=== PATIENT | female | born 1945 | race Caucasian/White ===

== ENCOUNTER 2023-10-30 18:00 | Outpatient (RCR) | payer MEDICARE, OTHER, SELFPAY | END 2023-10-30 23:59 | disposition home or self-care (01) | LOC: RPT 18:00 | PROVIDERS: ATTENDING PHYSICIAN Internal Medicine Endocrinology, Diabetes & Metabolism; FAMILY PHYSICIAN Internal Medicine | DX: M85.88 Other specified disorders of bone density and structure, other site (principal) | CPT/HCPCS: 97112; 97161 ==

== ENCOUNTER 2023-12-04 13:06 | Outpatient (RCR) | payer MEDICARE, OTHER, SELFPAY | END 2023-12-04 23:59 | disposition home or self-care (01) | LOC: RPT 13:06 | PROVIDERS: ATTENDING PHYSICIAN Internal Medicine Endocrinology, Diabetes & Metabolism; FAMILY PHYSICIAN Internal Medicine | DX: M85.88 Other specified disorders of bone density and structure, other site (principal); Z73.6 Limitation of activities due to disability | CPT/HCPCS: 97110; 97112 ==

== ENCOUNTER 2023-12-13 14:09 | Outpatient (RCR) | payer MEDICARE, OTHER, SELFPAY | END 2023-12-14 07:11 | disposition home or self-care (01) | LOC: RPT 14:09 | PROVIDERS: ATTENDING PHYSICIAN Internal Medicine Endocrinology, Diabetes & Metabolism; FAMILY PHYSICIAN Internal Medicine | DX: M85.88 Other specified disorders of bone density and structure, other site (principal); Z73.6 Limitation of activities due to disability | CPT/HCPCS: 97110; 97112 ==

== ENCOUNTER 2024-02-11 12:13 | Emergency (ER) | payer MEDICARE, OTHER, SELFPAY ==
[2024-02-11] VITALS (8 sets, daily range): BP systolic 107–140; BP diastolic 55–78; BMI 30.5
[2024-02-11] MEDS: NSS 1000 IV (13:57)
[2024-02-11 14:14] LABS: % Basophils 0.4 % (0-2); % Eosinophils 2.5 % (0-6); % Immature Granulocytes 0.4 % (0-0.5); % Lymphocytes 5.4 % (20.5-51.1); % Monocytes 6.5 % (1.7-9.3); % Neutrophils 84.8 % (42.2-75.2); Absolute Eosinophils 0.3 10^3/uL (0-0.7); Absolute Lymphocytes 0.6 10^3/uL (1.2-3.4); Absolute Monocytes 0.7 10^3/uL (0.1-0.6); Absolute Neutrophils 8.8 10^3/uL (1.4-6.5); Hematocrit 38.6 % (37.0-47.0); Hemoglobin 13.2 g/dL (12.0-16.0); Mean Corp Hgb Conc. 34.2 g/dL (33.0-37.0); Mean Corpuscular Hgb 28.6 pg (27.0-31.0); Mean Corpuscular Volume 83.7 fL (81.0-99.0); Nucleated Red Blood Cells % 0 %; Platelet Count 199 10^3/uL (130-400); Red Blood Cell Count 4.61 10^6/uL (4.20-5.40); Red Cell Dist. Width 13.3 % (11.5-14.5); White Blood Cell Count 10.3 10^3/uL (4.8-10.8)
[2024-02-11 14:15] LABS: Urine Albumin Negative (Neg - Trace); Urine Bilirubin Negative (Negative); Urine Character Clear (Clear); Urine Color Yellow; Urine Glucose Negative (Negative); Urine Ketone Negative (Negative); Urine Leukocyte Negative (Negative); Urine Nitrite Negative (Negative); Urine Occult Blood 1+ (Negative); Urine Specific Gravity 1.005 (<1.030); Urine Urobilinogen Negative (Neg - 1+)
--- NOTE | 2024-02-11 14:20 | ED.GENMED ---
History of Present Illness
General
Chief Complaint: Urinary Symptoms
Source: patient
Exam Limitations: none
Time Seen by Provider: 02/11/24 12:50
Nursing documentation reviewed up to this point in time: agreed with
History of Present Illness
History of Present Illness:
pt is a 78 y/o F with h/o thyroidcancer remotely
says about 3 weeks ago she got suprapubic pressure, urinary frequency,vaginal irritation
went to [facility] who said no signs of vaginitis, did UA and culture and pt grew out e coli
was treated with 7 days macrobid. on day 6 she started feeling worse, generalized fatigue, still with urinary sypmtoms
called the [facility] back but they didn't think anything else needed to be done
she spoke with PCP and then on 02/01 had new UA/culture and blood work done
her Urinec ulture grew out enterococcus
it was senstiive to ampicillin, macrobid and vanc
she was put on another round of macrobid on 02/04
she now feels worse, fever to 100 yesterday and chills
no back pain, nausea, vomiting, diarrhea
her PCP also ordered US of renal and bladder today which she had done outpatient
it shows mild bladder wall thickening without signs of obstructive uropathy; jets on both sides seen
Past History
Past History
ED Past Medical History: Cancer (thyroid cancer)
Social History
Tobacco: Non-smoker
Alcohol: None
Drug: None
Personal:
Living: with family
Review of Systems
Review of Systems
Allergies reviewed?: Yes
All Other Systems: Not applicable
Phy Exam
Physical Exam
Physical Exam:
GENERAL: Alert , in no apparent distress
EYE: pupils equal and reactive
NECK: Supple
ENT: o/p clr, mmm.
CARDIAC initially tachy 110, but when i examined normla
LUNGS: Clear breath sounds bilaterally, no acute respiratory distress, no wheezes/rales/rhonchi
ABDOMEN: Soft, without focal tenderness, no r/g, no cvat, normal bowel sounds
no cva tenderness
no abdominla tenderness;
NEUROLOGICAL: Alert and oriented, no focal neuro deficits
SKIN: Warm and dry, skin intact.
MUSCULOSKELETAL: No edema, well perfused. neg cyrus's sign
PSYCH: Normal and appropriate interaction.
Course
Orders/Labs/Results
Orders:
Orders
02/11/24 13:36
0.9% Sodium Chloride 1000 ml [Nss] 1,000 ml IV BOLUS
02/11/24 13:59
Complete Blood Count/With Diff Urgent
Comprehensive Metabolic Panel Urgent
Lactic Acid Urgent
Blood Culture Urgent
NIALL Source: Blood/Venous
Specimen Description:
02/11/24 14:01
Urinalysis Reflex To Culture Urgent
Date Specimen was Collected: 02/11/24
Time Specimen was Collected: 13:37
Urine Microscopic Reflex Cult Urgent
02/11/24 14:59
Acetaminophen [Tylenol] 650 mg PO NOW STA
02/11/24 15:24
Ampicillin/Sulbactam 3 G [Unasyn] 3 gm 0.9% Sodium Chloride 100 ml [Nss] 100 ml IV NOW
02/12/24 13:52
Add On - Microbiology Urgent
Tests Added?: urine culture
02/12/24 14:01
Urine Culture Urgent
NIALL Source: U
Specimen Description:
Date Specimen was Collected: 02/11/24
Time Specimen was Collected: 13:37
Comment: ADD ON per Ayaka Benites PA-C
Abnormal Lab Results
02/11/24 02/11/24
13:59 14:01
Absolute Neuts (auto) 8.8 H 10^3/uL
(1.4-6.5)
Absolute Lymphs (auto) 0.6 L 10^3/uL
(1.2-3.4)
Absolute Monos (auto) 0.7 H 10^3/uL
(0.1-0.6)
Neutrophils % 84.8 H %
(42.2-75.2)
Lymphocytes % 5.4 L %
(20.5-51.1)
BUN 18 H mg/dl
(7-17)
Glucose 153 H mg/dl
(70-99)
Total Bilirubin 1.9 H mg/dl
(0.2-1.3)
Ur Occult Blood Reflex 1+ A
(Negative)
Urine Bacteria (Reflex) Few A
(Negative)
02/11/24 13:59
02/11/24 13:59
Vital Signs
Initial and Last Documented VS:
Initial Vital Signs
Temp Pulse Resp BP Pulse Ox
98.4 F 110 16 140/78 96
02/11/24 12:15 02/11/24 12:15 02/11/24 12:15 02/11/24 12:15 02/11/24 12:15
Last Documented Vital Signs
Temp Pulse Resp BP Pulse Ox
98.7 F 71 16 107/59 96
02/11/24 17:03 02/11/24 17:03 02/11/24 17:03 02/11/24 17:03 02/11/24 17:03
MDM/Problems Addressed
Differential Diagnosis Includes:
uti, compicated UTI, obstructive uropathy, interstitial cystisi
MDM/Problems Addressed:
78 y/o F
urinary sypmtom 3 weeks
initial culture outpatient by filling technician which was e coli sensitive to macrobid
pt didn't feel better
had another urine culture 02/01 which showed enterococcus
sensitive to amp, vanc and macrobid
given another round of macrobid and having continued symptoms
now low grade temp 100
she has no vomiting, back pain
had US outpatient today of renal/bladder showing mild cystitis, jets visible, no hydro
her abdomen is nontender
she does not appear toxic
borderline temp here
given tylenol adnd fulids
ua does not look very piositive but probably partially treated
reassuring that her wbc is 10 and her lactic acid normal
blood cultrue sent
pt would liek to trial home with abx
since enterococcus was sentiive to amp, will try augmentin and give a dose of unasyn here before discharge
*Critical Care Note
Total Time (30-74mins, 75-104mins- exclusive of procedures): Not Applicable
ED Attending Note
-
Portions of this chart may have been created with voice recognition software.� Occasional wrong word or��sound alike� substitutions may have occurred due to the inherent limitations of voice recognition software.
Discharge Plan
Departure
Patient Disposition: Home (Routine Discharge)
Date of Disposition: 02/11/24
Time of Disposition: 15:31
Patient with high blood pressure during this ER visit?: No
Condition: Fair
Covid-19: Not Applicable
Discharge Problem:
UTI (urinary tract infection)
Instructions: Urinary Tract Infection, Adult (DC)
Prescriptions:
New
amoxicillin-pot clavulanate [Augmentin] 500-125 mg tablet
1 tab PO Q12H Qty: 20 0RF
Referrals:
Mabel Esposito MD [Family Provider] - Follow up in 2-3 days
Activity Restrictions/Additional Instructions:
YOUR BLOOD WORK WAS REASSURING
YOUR ULTRASOUND SHOWED A LITTTLE BLADDER WALL THICKENING BUT NO SIGNS OF KIDNEY STONE/OBSTRUCTION
WE GAVE YOU A DOSE OF UNASYN WHICH HAS AMPICILLIN IN IT AND ARE SENDING YOU HOME WITH AUGMENTIN TWICE A DAY
YOU CAN START THIS TONIGHT
TAKE FOR AT LEAST 7 BUT AT MOST 10 DAYS
TAKE A PROBIOTIC WHILE ON IT
TAKE TYLENOL FOR FEVER NEEDED
I WOULD EXPECT YOUR FEVER TO BREAK IN 1-2 DAYS
IF YOU ARE STILL HAVING FEVERS, OR FEELING ANY WORSE YOU SHOULD COME BACK TO BE SEEN
OTHERWISE FOLLOW UP WITH YOUR PRIMARY AT THE END OF THIS WEEK.
Interventions
Interventions:
*Risk Screen - Suicide Last Done: 02/11/24 12:19
*General Assessment Last Done: 02/11/24 13:42
*Neglect/Abuse Screening Last Done: 02/11/24 12:19
ED- Fall Risk Assessment Last Done: 02/11/24 13:42
*ED COVID-19 Vaccine History Last Done: 02/11/24 12:18
*Nursing Disposition Last Done: 02/11/24 17:03
ED-Female Genitourinary Assessment Last Done: 02/11/24 13:42
Discharge Date and Time
Discharge Date/Time: 02/11/24 17:04
Print Language: TELUGU
[2024-02-11 14:28] LABS: Lactic Acid 1.5 mmol/L (0.7-2.0)
[2024-02-11 14:31] LABS: ALT (SGPT) 33 U/L (0-35); AST (SGOT) 29 U/L (14-36); Albumin 4.5 g/dl (3.5-5.0); Alkaline Phosphatase 67 U/L (38-126); Blood Urea Nitrogen 18 mg/dl (7-17); Calcium 9.3 mg/dl (8.4-10.2); Carbon Dioxide 25 mmol/L (22-30); Chloride 100 mmol/L (98-107); Estimated Creatinine Clearance 58 ml/min; Glucose 153 mg/dl (70-99); Potassium 3.8 mmol/L (3.5-5.1); Sodium 139 mmol/L (135-145); Total Bilirubin 1.9 mg/dl (0.2-1.3); Total Protein 6.9 g/dl (6.3-8.2); eGFR > 60.00
[2024-02-11 14:45] LABS: Urine Squamous Cell >30 /LPF (Few)
[2024-02-11 14:46] LABS: Urine Amorphous Seen
[2024-02-11 14:48] LABS: Urine Bacteria Few (Negative)
[2024-02-11 14:49] LABS: Urine White Cell 0-2 /HPF (0-5)
[2024-02-11 14:50] LABS: Urine Red Blood Cell 0-2 /HPF (0-2)
[2024-02-11] MEDS: TYLENOL 650 MG PO (15:22)
[2024-02-11] MEDS: UNASYN IV (15:47)
--- NOTE | 2024-02-11 17:01 | EDRN ---
Reviewed discharge instructions with patient. Verbalized understanding. Ambulated with steady gait to the lobby.
== END 2024-02-11 17:04 | disposition home or self-care (01) ==
LOC: EMR 12:13
PROVIDERS: Physician Assistant; EMERGENCY PHYSICIAN Emergency Medicine; FAMILY PHYSICIAN Internal Medicine
DX: N30.90 Cystitis, unspecified without hematuria (principal); Z85.850 Personal history of malignant neoplasm of thyroid
CPT/HCPCS: 96365; 96361; 99284; 76770; 80053; 81003; 81015; 83605; 85025; 87040; 87086

== ENCOUNTER → 2024-05-21 10:02 | Outpatient (REF) | payer MEDICARE, OTHER, SELFPAY | LOC: RCS 10:02 | PROVIDERS: ATTENDING PHYSICIAN Urology; FAMILY PHYSICIAN Internal Medicine | DX: Z01.818 Encounter for other preprocedural examination (principal) | CPT/HCPCS: 93005 ==